=== PATIENT | female | born 1960 | race Caucasian/White ===

== ENCOUNTER 2019-05-26 06:23 | Day surgery (SDC) | payer OTHER ==
[2019-05-25 11:49] VITALS: BMI 27.4
--- NOTE | 2019-05-25 17:00 | PREOP ---
DATE OF ADMISSION: 05/26/2019 ADMISSION DIAGNOSIS: Tracheocutaneous fistula. HISTORY OF PRESENT ILLNESS: A 58-year-old female had a tracheotomy placed in 2013 after being hospitalized for pneumonia in [facility]. She was in the ICU for 3 weeks and then in stepdown. She did have a tracheotomy and feeding tube and then was in [facility]. The feeding tube was removed. Her trach was plugged, she tolerated this well. There is a history of COPD. She was decannulated. However, over time, she has had a persistent tracheocutaneous fistula. It is small but has never healed. She is now admitted for closure of tracheocutaneous fistula with reconstruction. PAST MEDICAL HISTORY: The patient's primary medical doctor is Dr. Shelton Vasquez, bottom wheeler is Dr. Shelton Holliday. She does have a history of allergies, anxiety, COPD, and hypertension. PRESENT MEDICATIONS: Include aspirin, atorvastatin, losartan, metformin, Norvasc, prednisone, Protonix, Singulair, Symbicort, Tylenol. She does have a LATEX allergy which produces a rash. She is an ex-smoker. PHYSICAL EXAMINATION: GENERAL: Patient is a well developed female in no acute distress. HEENT: Head is normal. Eyes are clear. NECK: Demonstrates a tracheocutaneous fistula which is clean without granulation, it is approximately 5 mm in diameter. The visualized trachea is normal. There is a vertical scar below her tracheocutaneous fistula which extends down to the sternal notch. The remainder of her head/neck examination is unremarkable. She has had a previous flexible laryngoscopy which demonstrates no airway obstruction and normal vocal cord mobility. DATA: Preoperative labs are pending. IMPRESSION: Tracheocutaneous fistula. PLAN: Closure of tracheocutaneous fistula with reconstruction, muscle flaps. INFORMED CONSENT: Patient and her daughter understand the indications, alternatives, nature of risks and benefits of proposed surgery, potential complications including but not limited to anesthesia, bleeding, infection, scar tissue, and reopening of the skin at the area of the fistula were discussed. She understands and accepts these risks and wished to proceed with surgery. Questions answered fully. MAGGIE JUAN M.D. ADRIANNE/[id number] MTDD
[2019-05-26 07:03] VITALS: BP 117/81; PULSE 112; TEMP 98.9
[2019-05-26] MEDS ORDERED: LIDOCAINE 1%-EPI 1:100,000 30 ML MDV IJ ONE (07:05)
[2019-05-26] MEDS ORDERED: ALBUTEROL SO4 0.083% IH SOL 2.5 MG/3 ML VIAL.NEB. NEB ONE ×2 (07:42→07:46)
--- NOTE | 2019-05-26 08:03 | HP ---
History & Physical Update - History History: No Change Currently as noted:: granddaughter was sick, pt has cough - Physical Currently as noted:: pt now has an active, productive cough and ronchi - Assessment Currently as noted:: no improvement with breathing rx in holding area - Plan Currently as noted:: cancel surgery. see Dr. Holliday and/or PMD, reschedule when lungs clear,DC home
== END 2019-05-26 08:25 | disposition home or self-care (01) ==
LOC: JASU-SURG 06:23
PROVIDERS: ATTEND Otolaryngology
DX: Z53.8 Procedure and treatment not carried out for other reasons (principal)
CPT/HCPCS: 82962

== ENCOUNTER 2022-12-23 15:09 | Emergency (ER) | payer OTHER ==
[2022-12-23 15:31] VITALS: BP 123/58; PULSE 93; RESP 18; TEMP 98.5; BMI 23.6
[2022-12-23] MEDS ORDERED: predniSONE 20 MG TABLET (UD) PO ONE (16:25)
[2022-12-23] MEDS ORDERED: FAMOTIDINE 10 MG TABLET PO ONE (16:26)
[2022-12-23] MEDS ORDERED: hydrOXYzine HCL 10 MG/5 ML LIQUID BULK BOTTLE PO ONE (16:26)
[2022-12-23] MEDS ORDERED: predniSONE 20 MG TABLET (UD) ONE (16:38)
[2022-12-23] MEDS ORDERED: FAMOTIDINE 10 MG TABLET ONE (16:38)
[2022-12-23] MEDS ORDERED: hydrOXYzine PAMOATE 25 MG CAPSULE (FP) PO ONE ×3 (16:38→16:40)
== END 2022-12-23 17:30 | disposition home or self-care (01) ==
LOC: JER 15:09 → JERFT 15:09
DX: R21 Rash and other nonspecific skin eruption (principal); T78.40XA Allergy, unspecified, initial encounter
CPT/HCPCS: 99283-25